=== PATIENT | female | born 1995 | race Caucasian/White ===

== ENCOUNTER 2023-03-08 12:34 | Day surgery (SDC) | payer OTHER ==
[2023-03-08 13:08] VITALS: BMI 25.4
[2023-03-08] MEDS ORDERED: hydrALAZINE 20 MG/ML VIAL SLOW IVP PRN (13:42)
[2023-03-08] MEDS ORDERED: Lactated Ringer's 1,000 ML IV SCH (13:45)
[2023-03-08 14:06] LABS: Fetal Membranes Rupture No Membranes Rupture (No Rupture)
== END 2023-03-08 14:27 | disposition home or self-care (01) ==
LOC: CSHLD/OP 12:34
PROVIDERS: ATTEND Obstetrics & Gynecology
DX: O47.03 False labor before 37 completed weeks of gestation, third trimester (principal); O99.343 Other mental disorders complicating pregnancy, third trimester; F41.9 Anxiety disorder, unspecified; F32.A Depression, unspecified; Z79.899 Other long term (current) drug therapy; Z90.89 Acquired absence of other organs; Z88.5 Allergy status to narcotic agent; Z3A.34 34 weeks gestation of pregnancy
CPT/HCPCS: 84112; 87480; 87510; 87660; 96360; 99284

== ENCOUNTER 2023-04-12 09:47 | Inpatient (IN) | payer OTHER ==
[2023-04-12] MEDS ORDERED: fentaNYL 50 mcg/mL 1 mL Vial SLOW IVP PRN (09:51)
[2023-04-12] MEDS ORDERED: Promethazine HCl 25 MG/ML VIAL IM PRN (09:51)
[2023-04-12] MEDS ORDERED: Lidocaine 1% (PF) 30 ML VIAL SC PRN (09:51)
[2023-04-12] MEDS ORDERED: Ibuprofen 800 MG TAB PO PRN (09:51)
[2023-04-12] MEDS ORDERED: Carboprost 250 MCG/ML AMP IM PRN (09:51)
[2023-04-12] MEDS ORDERED: Diphenoxylate HCl/Atropine Tablet PO PRN ×2 (09:51)
[2023-04-12] MEDS ORDERED: Docusate 100 MG CAP PO PRN (09:51)
[2023-04-12] MEDS ORDERED: Misoprostol 200 MCG TAB PR PRN (09:51)
[2023-04-12] MEDS ORDERED: Methylergonovine 0.2 MG/ML VIAL IM PRN (09:51)
[2023-04-12] MEDS ORDERED: Ondansetron PF 4 MG/2 ML Vial IVP PRN ×2 (09:51→20:07)
[2023-04-12] MEDS ORDERED: hydrALAZINE 20 MG/ML VIAL SLOW IVP PRN ×2 (09:51→20:07)
[2023-04-12] MEDS ORDERED: Acetaminophen 500 MG TAB PO PRN (09:51)
[2023-04-12] MEDS ORDERED: traMADol HCl 50 MG TAB PO PRN ×2 (09:53)
[2023-04-12] MEDS ORDERED: Oxytocin 30 units/NS 500 ML 500 ML IV SCH ×4 (10:00→22:15)
[2023-04-12] MEDS ORDERED: Lactated Ringer's 1,000 ML IV SCH (10:00)
[2023-04-12 10:46] LABS: Hematocrit 38.1 % (34.9-44.5); Hemoglobin 12.3 g/dL (12.0-15.5); Mean Corpuscular HGB CONC 32.3 g/dL (32.0-36.0); Mean Corpuscular Hemoglobin 27.3 pg (27.0-33.0); Mean Corpuscular Volume 84.5 fl (81.6-98.3); Mean Platelet Volume 9.5 fl (7.4-10.4); Platelet Count 253 10x3/uL (150-450); RBC Distribution Width 16.7 % (11.5-14.5); Red Blood Cell (RBC) Count 4.51 10x6/uL (3.90-5.03); White Blood Cell (WBC) Count 13.9 10x3/uL (3.5-10.5)
[2023-04-12 10:50] VITALS: BMI 25.8
[2023-04-12 11:22] LABS: Syphilis Antibody Nonreactive (Nonreactive); Syphilis Antibody Index 0.04 S/CO (<1.00 Non-Reactive)
[2023-04-12 11:23] LABS: HIV (1/2) Antibody/Antigen Non-Reactive (NonReactive); HIV 1/2 INDEX 0.07 S/CO (<1.00)
[2023-04-12 11:24] LABS: HBSAg Index 0.19 S/CO (0-0.99); Hep B Surf Ag - L&D Non-Reactive S/CO (NonReactive)
[2023-04-12] MEDS ORDERED: Boostrix 0.5 ML (Tdap) VIAL (>/=7 yrs of age) IM ONE (20:07)
[2023-04-12] MEDS ORDERED: Milk Of Magnesia 30 ML UDCUP PO PRN (20:07)
[2023-04-12] MEDS ORDERED: Lanolin Ointment 7 GM TUBE TOP PRN (20:07)
[2023-04-12] MEDS ORDERED: Benzocaine-Menthol 82.5 ML CAN TOP PRN (20:07)
[2023-04-12] MEDS ORDERED: diphenhydrAMINE 25 MG CAP PO PRN (20:07)
[2023-04-12] MEDS ORDERED: Preparation H Ointment 28 GM TUBE PR PRN (20:07)
[2023-04-12] MEDS ORDERED: HYDROcodone/Acetaminophen 5/325 mg Tablet PO PRN ×2 (20:07)
[2023-04-12] MEDS ORDERED: Bisacodyl 10 MG SUPP PR PRN (20:07)
[2023-04-12] MEDS ORDERED: Misoprostol 200 MCG TAB VAG PRN (20:07)
[2023-04-12] MEDS ORDERED: Zolpidem Tartrate 5 MG TAB PO PRN (20:07)
[2023-04-12] MEDS ORDERED: Docusate 100 MG CAP PO SCH (22:15)
[2023-04-13 03:35] LABS: Hematocrit 32.5 % (34.9-44.5); Hemoglobin 10.7 g/dL (12.0-15.5); Mean Corpuscular HGB CONC 32.9 g/dL (32.0-36.0); Mean Corpuscular Hemoglobin 28.2 pg (27.0-33.0); Mean Corpuscular Volume 85.8 fl (81.6-98.3); Mean Platelet Volume 9.5 fl (7.4-10.4); Platelet Count 231 10x3/uL (150-450); RBC Distribution Width 16.4 % (11.5-14.5); Red Blood Cell (RBC) Count 3.79 10x6/uL (3.90-5.03); White Blood Cell (WBC) Count 21.8 10x3/uL (3.5-10.5)
[2023-04-13] MEDS: Ibuprofen 800 MG TAB PO SCH ×3 (04:31→21:37)
[2023-04-13] MEDS: Docusate 100 MG CAP PO SCH ×2 (09:33→21:37)
[2023-04-13] MEDS: Ferrous Sulfate 325 MG TAB PO SCH ×2 (09:33→18:46)
[2023-04-14] MEDS: Ibuprofen 800 MG TAB PO SCH (05:56)
[2023-04-14] MEDS: Ferrous Sulfate 325 MG TAB PO SCH (07:11)
[2023-04-14] MEDS: Docusate 100 MG CAP PO SCH (09:13)
[2023-04-14 09:33] VITALS: BP 102/63; TEMP 98.1
== END 2023-04-14 13:25 | disposition home or self-care (01) | DRG 807 ==
LOC: CSHLD 09:47 → CSHPP 22:40
PROVIDERS: ADMIT Obstetrics & Gynecology; ATTEND Obstetrics & Gynecology
PROC: 10E0XZZ Delivery of Products of Conception, External Approach (ICD-10-PCS; principal; 2023-04-12)
PROC: 10907ZC Drainage of Amniotic Fluid, Therapeutic from Products of Conception, Via Natural or Artificial Opening (ICD-10-PCS; 2023-04-12)
DX: O99.02 Anemia complicating childbirth (principal); Z37.0 Single live birth; D64.9 Anemia, unspecified; Z3A.39 39 weeks gestation of pregnancy; Z88.5 Allergy status to narcotic agent; Z90.89 Acquired absence of other organs
CPT/HCPCS: 36415; 85027; 86780; 86850; 86900; 86901; 87340; 87389; J2405; J2590; J3010; J7120